=== PATIENT | female | born 1965 | race African-American/Black ===

== ENCOUNTER 2017-03-19 15:32 | Emergency (ER) | payer MEDICAID ==
[2017-03-19] MEDS ORDERED: Sodium Chloride 0.9% 10 ML Syringe FLUSH PRN ×2 (15:45→16:01)
[2017-03-19] MEDS ORDERED: Sodium Chloride 0.9% 1,000 ML IV SCH (15:45)
[2017-03-19] MEDS ORDERED: Ondansetron 4 MG/2 ML SDV IVPUSH ONE (15:49)
[2017-03-19] MEDS ORDERED: HYDROmorphone 1 MG/ML Syringe IVPUSH ONE (15:49)
[2017-03-19] MEDS ORDERED: diphenhydrAMINE 50 MG/ML SDV IVPUSH ONE (15:56)
[2017-03-19] MEDS ORDERED: methylPREDNISolone Sodium Succinate 125 MG/2 ML SDV IVPUSH ONE (15:56)
[2017-03-19] MEDS ORDERED: Iopamidol 755 Mg/ML 100 ML Bottle IVPUSH ONE (16:01)
--- NOTE | 2017-03-19 16:12 | EDM.PDOC ---
ED HPI GENERAL MEDICAL PROBLEM - General Chief Complaint: Chest Pain Stated Complaint: [facility] Time Seen by Provider: 03/19/17 15:32 Source of Information: Reports: Patient History Limitations: Reports: No Limitations - History of Present Illness INITIAL COMMENTS - FREE TEXT/NARRATIVE: 51-year-old female presents via EMS crew for evaluation treatment chest pain. Reportedly the chest pain started about 40 minutes prior to arrival in the ER. Patient reports it is in the center of her chest and radiates to her back. She has difficulty describing the type of pain that rates it as a 10 out of 10. She was given 1 spray of nitroglycerin and 4 baby aspirin prior to arrival in the ER by EMS crew. She reports no relief of symptoms with the nitroglycerin or aspirin. No pain medication was given; she has an allergy to morphine. Patient reports associated symptoms of nausea, diaphoreis and shortness of breath. She denies any fevers, cough, abdominal pain, vomiting or leg pain. Patient states that she was recently diagnosed with diabetes. She has been started on metformin. Patient states that she smokes 2 cigarettes a day. She smoked for several years. No cardiac history. Reports she has had a stress recently. No abnormalities identified on the stress test. Location: Reports: Chest, Back Treatments TELEPHONE CLERK: Reports: Aspirin, IV/IO, Nitroglycerin, Oxygen Chest Pain Score (Numeric/FACES): 8 - Related Data Allergies Allergy/AdvReac Type Severity Reaction Status Date / Time iodine Allergy Hives Verified 03/19/17 15:34 lisinopril AdvReac Cough Verified 03/19/17 15:34 losartan AdvReac Cough Verified 03/19/17 15:34 morphine AdvReac Agitation Verified 03/19/17 15:34 Home Meds: Home Meds Cyclobenzaprine [Flexeril] 10 mg PO BEDTIME 09/12/15 [History] Pantoprazole 20 mg PO BID 09/12/15 [History] Hydrochlorothiazide 25 mg PO BID 02/06/16 [History] amLODIPine [Norvasc] 10 mg PO BEDTIME 06/07/16 [History] Ascorbic Acid [Vitamin C] 500 mg PO DAILY 02/21/17 [History] Hydrocodone/Acetaminophen [Hydrocodon-Acetaminophn 10-325] 1 tab PO Q4HR PRN [History] Pregabalin [Lyrica] 25 mg PO BID 02/21/17 [History] buPROPion [Wellbutrin] 150 mg PO BID 02/21/17 [History] Clindamycin HCl 300 mg PO TID 03/19/17 [History] metFORMIN [Glucophage] 1,000 mg PO BIDMEALS 03/19/17 [History] Past Medical History Cardiovascular History: Reports: Hypertension Respiratory History: Reports: Sleep Apnea Gastrointestinal History: Reports: GERD DIRECTOR OF OCCUPATIONAL THERAPY History: Reports: Other (See Below) Other OB/BYN History: irregular/heavy periods Musculoskeletal History: Reports: Back Pain, Chronic Other Dermatologic History: freq boils/cysts - Past Surgical History Other Musculoskeletal Surgeries/Procedures:: cysts removed from bi-lat wrist Social & Family History - Family History Cardiac: Reports: Hypertension, [place] Endocrine/Metabolic: Reports: Diabetes, type II Oncologic: Reports: Breast, Cervix - Tobacco Use Smoking Status *Q: Current Every Day Smoker Years of Tobacco use: 30 Packs/Tins Daily: 0.1 Used Tobacco, but Quit: No Second Hand Smoke Exposure: Yes - Caffeine Use Caffeine Use: Reports: None - Alcohol Use Days Per Week of Alcohol Use: 3 Number of Drinks Per Day: 6 Total Drinks Per Week: 18 - Recreational Drug Use Recreational Drug Use: No Drug Use in Last 12 Months: No Recreational Drug Type: Reports: Cocaine ED ROS GENERAL - Review of Systems Review Of Systems: See Below Constitutional: Reports: Diaphoresis. Denies: Fever Respiratory: Reports: Shortness of Breath. Denies: Cough Cardiovascular: Reports: Chest Pain GI/Abdominal: Reports: Nausea. Denies: Abdominal Pain, Vomiting ED EXAM, GENERAL - Physical Exam Exam: See Below Exam Limited By: No Limitations General Appearance: Alert, WD/WN, Moderate Distress, Obese Ears: Normal External Exam Throat/Mouth: Normal Inspection, Normal Lips, Normal Voice, No Airway Compromise Respiratory/Chest: No Respiratory Distress, Lungs Clear, Normal Breath Sounds Cardiovascular: Normal Peripheral Pulses, Regular Rate, Rhythm, No Murmur GI/Abdominal: Soft, Non-Tender Neurological: Alert, Oriented, Normal Cognition Psychiatric: Normal Affect, Normal Mood Skin Exam: Warm, Dry, Normal Color EKG INTERPRETATION EKG Date: 03/19/17 Time: 15:40 Rhythm: NSR Rate (Beats/Min): 85 [place]: Normal P-Wave: Present QRS: Normal ST-T: Normal QT: Normal Comparison: No Change EKG Interpretation Comments: NSR at 85 bpm. V1-V@ slight ST elevation - unchanged from previous ekg 02-06-16. Reviewed by myself and Dr. Funes. Course - Vital Signs Last Recorded V/S: Last Vital Signs Temp 36.1 C 03/19/17 15:34 Pulse 94 03/19/17 20:10 Resp 20 03/19/17 20:10 BP 125/76 03/19/17 20:10 Pulse Ox 94 L 03/19/17 20:10 - Orders/Labs/Meds Labs: Laboratory Tests 03/19/17 03/19/17 03/19/17 Range/Units 15:48 15:48 15:48 WBC 10.74 H (3.98-10.04) K/mm3 RBC 5.56 H (3.98-5.22) M/mm3 Hgb 15.5 (11.2-15.7) gm/L Hct 46.0 H (34.1-44.9) % MCV 82.7 (79.4-94.8) fl MCH 27.9 (25.6-32.2) pg MCHC 33.7 (32.2-35.5) g/dl RDW Std Deviation 47.0 H (36.4-46.3) fL Plt Count 272 (182-369) K/mm3 MPV 10.7 (9.4-12.3) fl Neutrophils % (Manual) 68 H (40-60) % Band Neutrophils % 0 (0-10) % Lymphocytes % (Manual) 24 (20-40) % Atypical Lymphs % 0 % Monocytes % (Manual) 6 (2-10) % Eosinophils % (Manual) 1 (0.7-5.8) % Basophils % (Manual) 1 (0.1-1.2) Platelet Estimate Adequate Plt Morphology Comment Normal RBC Morph Comment Normal PT 10.9 (8.0-13.0) SECONDS INR 1.00 APTT 30 (22-36) SECONDS D-Dimer, Quantitative 0.53 (0.19-0.59) mg/L Sodium 137 (136-145) mEq/L Potassium 2.9 L (3.5-5.1) mEq/L Chloride 99 (98-107) mEq/L Carbon Dioxide 23 (21-32) mEq/L Anion Gap 17.9 H (5-15) BUN 13 (7-18) mg/dL Creatinine 0.9 (0.55-1.02) mg/dL Est Cr Clr Drug Dosing 63.86 mL/min Estimated GFR (MDRD) > 60 (>60) mL/min BUN/Creatinine Ratio 14.4 (14-18) Glucose 149 H (74-106) mg/dL Calcium 9.8 (8.5-10.1) mg/dL Total Bilirubin 0.6 (0.2-1.0) mg/dL AST 21 (15-37) U/L ALT 38 (14-59) U/L Alkaline Phosphatase 88 (46-116) U/L Troponin I < 0.017 (0.00-0.056) ng/mL Total Protein 8.6 H (6.4-8.2) g/dl Albumin 4.5 (3.4-5.0) g/dl Globulin 4.1 gm/dL Albumin/Globulin Ratio 1.1 (1-2) Lipase 190 (73-393) U/L // Range/Units 18:50 WBC (3.98-10.04) K/mm3 RBC (3.98-5.22) M/mm3 Hgb (11.2-15.7) gm/L Hct (34.1-44.9) % MCV (79.4-94.8) fl MCH (25.6-32.2) pg MCHC (32.2-35.5) g/dl RDW Std Deviation (36.4-46.3) fL Plt Count (182-369) K/mm3 MPV (9.4-12.3) fl Neutrophils % (Manual) (40-60) % Band Neutrophils % (0-10) % Lymphocytes % (Manual) (20-40) % Atypical Lymphs % % Monocytes % (Manual) (2-10) % Eosinophils % (Manual) (0.7-5.8) % Basophils % (Manual) (0.1-1.2) Platelet Estimate Plt Morphology Comment RBC Morph Comment PT (8.0-13.0) SECONDS INR APTT (22-36) SECONDS D-Dimer, Quantitative (0.19-0.59) mg/L Sodium (136-145) mEq/L Potassium (3.5-5.1) mEq/L Chloride (98-107) mEq/L Carbon Dioxide (21-32) mEq/L Anion Gap (5-15) BUN (7-18) mg/dL Creatinine (0.55-1.02) mg/dL Est Cr Clr Drug Dosing mL/min Estimated GFR (MDRD) (>60) mL/min BUN/Creatinine Ratio (14-18) Glucose (74-106) mg/dL Calcium (8.5-10.1) mg/dL Total Bilirubin (0.2-1.0) mg/dL AST (15-37) U/L ALT (14-59) U/L Alkaline Phosphatase (46-116) U/L Troponin I < 0.017 (0.00-0.056) ng/mL Total Protein (6.4-8.2) g/dl Albumin (3.4-5.0) g/dl Globulin gm/dL Albumin/Globulin Ratio (1-2) Lipase (73-393) U/L Meds: Medications Discontinued Medications Generic Name Dose Route Start Last Admin Trade Name Freq PRN Reason Stop Dose Admin Diphenhydramine HCl 50 mg 03/19/17 15:56 03/19/17 16:05 Benadryl IVPUSH 03/19/17 15:57 50 mg ONETIME ONE Administration Hydromorphone HCl 1 mg 03/19/17 15:49 03/19/17 16:10 Dilaudid IVPUSH 03/19/17 15:50 1 mg ONETIME ONE Administration Sodium Chloride 1,000 mls @ 100 mls/hr 03/19/17 15:45 03/19/17 16:01 Normal Saline IV 100 mls/hr ASDIRECTED BALDO Administration Sodium Chloride 100 mls @ 80 mls/hr 03/19/17 16:15 03/19/17 16:35 Normal Saline IV 80 mls/hr ASDIRECTED BALDO Administration Iopamidol 100 ml 03/19/17 16:01 03/19/17 16:35 Isovue-370 (76%) IVPUSH 03/19/17 16:02 100 ml ONETIME ONE Administration Methylprednisolone Sodium Succinate 125 mg 03/19/17 15:56 03/19/17 16:02 Solu-Medrol IVPUSH 03/19/17 15:57 125 mg ONETIME ONE Administration Ondansetron HCl 4 mg 03/19/17 15:49 03/19/17 16:08 Zofran IVPUSH 03/19/17 15:50 4 mg ONETIME ONE Administration Sodium Chloride 10 ml 03/19/17 15:45 03/19/17 16:09 Saline Flush FLUSH 10 ml ASDIRECTED PRN Administration Keep Vein Open Sodium Chloride 10 ml 03/19/17 16:01 03/19/17 16:35 Saline Flush FLUSH 10 ml ONETIME PRN Administration IV FLUSH - Radiology Interpretation Free Text/Narrative:: CT of the chest, abdomen and pelvis impression per Dr. Greene: 1. No acute abnormality is identified on CT study of the chest. 1. Several small nonobstructing stones are noted within the right kidney. 2. Mild atherosclerotic plaque within the aorta and iliac vessels. No aneurysm or aortic dissection is seen. 3. Other incidental findings as noted. Nothing acute is appreciated. - Re-Assessments/Exams Free Text/Narrative Re-Assessment/Exam: 03/19/17 16:12 Patient has allergies to morphine. Review the patient's records shows she has received Dilaudid in the past without any problem. Patient has allergy to IV contrast. Allergy is hives and itching. Decided to pretreat with Solu-Medrol and Benadryl IV. Contrast needed to rule out aortic dissection. 03/19/17 17:00 Labs returned. wbc is 10.74, hgb is 15.5 and plts are 272 sodium is 137 ,potassium is 2.9 and chloride is 99, anion gap is 17.9. gluclose is 149 d dimer is within normal limits at 0.53 pt is 10.9, INR is 1.0 PTT is 30 trop is <0.017 lipase is 190 Plan will be to continue to monitor patient here in the ER. Repeat trop at 18: 50. Symptoms started around 14:50 03/19/17 20:00 Pain has significantly improved. Repeat troponin returned normal at less than 0.017. At this point feel he can safely discharge the patient home. I feel we have adequately ruled out a [place], PE , aortic dissection, ruptured aneurysm and multiple other etiologies for chest pain. Possibilities include reflux, costochondritis, prodromal shingles. Discharge instructions as documented. Departure - Departure Time of Disposition: 20:00 Disposition: Home, Self-Care 01 Condition: Good Clinical Impression: Atypical chest pain Instructions: Nonspecific Chest Pain Referrals: Babs Stallworth PA-C [Primary Care Provider] - Forms: ED Department Discharge Additional Instructions: Continue with your current plan of care. Follow up with your primary care provider Friday as planned. [id number] Tylenol and Motrin as needed for pain relief. rest. Please return to the ER if your symptoms change or worsen.
[2017-03-19] MEDS ORDERED: Sodium Chloride 0.9% 100 ML IV SCH (16:15)
--- NOTE | 2017-03-19 17:13 | CT ---
CT chest Technique: Multiple axial sections through the chest were obtained. Intravenous contrast was utilized. Comparison: No prior chest CT. Findings: Aorta shows no aneurysm. No aortic dissection is identified. Visualized portions of the pulmonary arteries show no filling defects to indicate pulmonary embolism. Mediastinum shows several small scattered lymph nodes which are felt to be normal. No axillary adenopathy is seen. No pericardial thickening is seen. Lung window settings were reviewed which show the lungs to appear clear. No pleural effusions or pneumothorax is seen. Bone window settings were reviewed which appears within normal limits for the patient's age. Impression: 1. No acute abnormality is identified on CT study of the chest. Diagnostic code #1 CT abdomen and pelvis Technique: Multiple axial sections were obtained from above the dome of the diaphragm inferiorly through the pubic symphysis. Intravenous contrast was utilized. No oral contrast has been given. Findings: Mild atherosclerotic plaque is seen within the aorta and iliac vessels. No aneurysm or dissection is seen. Opacified branch vessels of the aorta appear within normal limits. Liver shows no focal abnormality. Spleen appears within normal limits in size. Adrenal glands show no nodule. Pancreas is within normal limits. Kidneys show symmetric contrast enhancement without hydronephrosis or mass. Several small nonobstructing calculi are seen within the right kidney. No retroperitoneal adenopathy is seen. Appendix is seen which is normal. No pelvic mass or adenopathy is seen. Iliac arteries as well as common femoral arteries are opacified and unremarkable. IUD is present within the endometrial cavity of the uterus. Bone window settings were reviewed which appears within normal limits for the patient's age. Impression: 1. Several small nonobstructing stones are noted within the right kidney. 2. Mild atherosclerotic plaque within the aorta and iliac vessels. No aneurysm or aortic dissection is seen. 3. Other incidental findings as noted above. Nothing acute is appreciated. Diagnostic code #2
[2017-03-19 20:13] VITALS: BP 125/76
== END 2017-03-19 20:06 | disposition home or self-care (01) ==
LOC: JD.ED 15:32
DX: R07.89 Other chest pain (principal); I10 Essential (primary) hypertension; G47.30 Sleep apnea, unspecified; K21.9 Gastro-esophageal reflux disease without esophagitis; F17.210 Nicotine dependence, cigarettes, uncomplicated; E11.9 Type 2 diabetes mellitus without complications; Z98.890 Other specified postprocedural states; Z88.8 Allergy status to other drugs, medicaments and biological substances; Z88.5 Allergy status to narcotic agent; Z79.84 Long term (current) use of oral hypoglycemic drugs
CPT/HCPCS: 36415; 71260; 74177; 80053; 83690; 84484; 85025; 85379; 85610; 85730; 93005; 96361; 96374; 96375; 99285; J1170; J1200; J2405; J2930; J7030; J7040; J7050; Q9967; 99284

== ENCOUNTER 2018-08-27 07:40 | Day surgery (SDC) | payer MEDICARE, MEDICAID ==
[~2018-08-27 07:40] MED LIST: Lactated Ringers 1,000 ML IV SCH; Lidocaine 1%/Sod Bicarbonate in NS 8.4% 1 ML Syringe IDERM PRN; Sodium Chloride 0.9% 10 ML Syringe FLUSH PRN
[2018-08-27] MEDS ORDERED: Bupivacaine 0.25% 10 ML SDV ONE ×2 (08:27→11:47)
--- NOTE | 2018-08-27 09:04 | PCM.PREANE ---
Preanesthetic Assessment - Procedure Proposed Procedure: l thumb a1 carlito release - Anesthesia/Transfusion/Family Hx Anesthesia History: Prior Anesthesia Without Reaction Family History of Anesthesia Reaction: No Transfusion History: No Prior Transfusion(s) - Review of Systems General: No Symptoms Pulmonary: No Symptoms Cardiovascular: No Symptoms Gastrointestinal: No Symptoms Neurological: No Symptoms Other: Reports: Diabetes - Physical Assessment NPO Status Date: 08/26/18 NPO Status Time: 23:00 O2 Sat by Pulse Oximetry: 96 Respiratory Rate: 16 Vital Signs: Last Vital Signs Temp 97.1 F 08/27/18 08:24 Pulse 91 08/27/18 08:24 Resp 16 08/27/18 08:24 BP 148/97 H 08/27/18 08:24 Pulse Ox 96 08/27/18 08:24 Height: 5 ft 4 in Weight: 87.09 kg ASA Class: 2 Mental Status: Alert & Oriented x3 Airway Class: Mallampati = 1 Dentition: Reports: Dentures (upper own bottom teeeth) Thyro-Mental Finger Breadths: 3 Mouth Opening Finger Breadths: 3 ROM/Head Extension: Full Lungs: Clear to Auscultation, Normal Respiratory Effort Cardiovascular: Regular Rate, Regular Rhythm - Lab Values: Laboratory Last Values POC Glucose 130 mg/dL (70-105) H 08/27/18 08:11 Urine HCG, Qual Negative (NEGATIVE) 08/27/18 08:34 - Allergies Allergies/Adverse Reactions: Allergies Allergy/AdvReac Type Severity Reaction Status Date / Time iodine Allergy Hives Verified 08/27/18 08:29 povidone-iodine Allergy Hives Verified 08/27/18 08:29 [From Betadine] soap [From Betadine] Allergy Hives Verified 08/27/18 08:29 lisinopril AdvReac Cough Verified 08/27/18 08:29 losartan AdvReac Cough Verified 08/27/18 08:29 morphine AdvReac Agitation Verified 08/27/18 08:29 - Blood Blood Available: No - Acknowledgements Anesthesia Type Planned: MAC Pt an Appropriate Candidate for the Planned Anesthesia: Yes Alternatives and Risks of Anesthesia Discussed w Pt/Guardian: Yes Pt/Guardian Understands and Agrees with Anesthesia Plan: Yes PreAnesthesia Questionnaire HEENT History: Reports: Impaired Vision, Other (See Below) Other HEENT History: wears glasses, has upper plate Cardiovascular History: Reports: High Cholesterol, Hypertension Respiratory History: Reports: Sleep Apnea (uses c pap) Gastrointestinal History: Reports: GERD TASSEL CLIPPER History: Reports: , Other (See Below) Other OB/BYN History: irregular/heavy periods Musculoskeletal History: Reports: Back Pain, Chronic Other Musculoskeletal History: left wrist pain, extensor carpal ulnaris sublaxation, ganglion cyst excision, heel spur, foot surgery, left total wrist Neurological History: Reports: None Psychiatric History: Reports: None Endocrine/Metabolic History: Reports: Diabetes, Type II Hematologic History: Reports: None Immunologic History: Reports: None Oncologic (Cancer) History: Reports: None Other Dermatologic History: freq boils/cysts - Past Surgical History Head Surgeries/Procedures: Reports: None Cardiovascular Surgical History: Reports: None Respiratory Surgical History: Reports: None GI Surgical History: Reports: Cholecystectomy, Colonoscopy, EGD Female Surgical History: Reports: Section Male Surgical History: Reports: None Neurological Surgical History: Reports: None Musculoskeletal Surgical History: Reports: Other (See Below) (left arm and left foot) Other Musculoskeletal Surgeries/Procedures:: cysts removed from bi-lat wrist Oncologic Surgical History: Reports: None Dermatological Surgical History: Reports: None - SUBSTANCE USE Smoking Status *Q: Current Every Day Smoker Tobacco Use Within Last Twelve Months: Cigarettes Second Hand Smoke Exposure: Yes Days Per Week of Alcohol Use: 0 Recreational Drug Use History: No - HOME MEDS Home Medications: Home Meds Cyclobenzaprine [Flexeril] 10 mg PO BEDTIME 09/12/15 [History] Pantoprazole 20 mg PO BID 09/12/15 [History] hydroCHLOROthiazide [Hydrochlorothiazide] 25 mg PO BID 02/06/16 [History] amLODIPine [Norvasc] 10 mg PO BEDTIME 06/07/16 [History] Hydrocodone/Acetaminophen [Hydrocodon-Acetaminophn 10-325] 1 tab PO Q4HR PRN [History] Albuterol [Ventolin HFA] 1 - 2 puff INH Q4H PRN 08/26/18 [History] Pregabalin [Lyrica] 150 mg PO DAILY 08/26/18 [History] atorvaSTATin [Lipitor] 40 mg PO DAILY 08/26/18 [History] metFORMIN [Glucophage XR] 1,500 mg PO DAILY 08/26/18 [History] - CURRENT (IN HOUSE) MEDS Current Meds: Current Medications Lactated Ringer's (Ringers, Lactated) 1,000 mls @ 125 mls/hr IV ASDIRECTED BALDO Stop: 08/27/18 23:00 Lidocaine/Sodium Bicarbonate (Buffered Lidocaine 1% In Ns 8.4%) 0.25 ml IDERM ONETIME PRN PRN Reason: Prior to IV Start Stop: 08/27/18 18:00 Sodium Chloride (Saline Flush) 10 ml FLUSH ASDIRECTED PRN PRN Reason: Keep Vein Open Stop: 08/27/18 18:00 Discontinued Medications Bupivacaine HCl (Sensorcaine-Mpf 0.25%) Confirm Administered Dose 20 ml .ROUTE .STK-MED ONE Stop: 08/27/18 08:28
[2018-08-27] MEDS ORDERED: Lidocaine 1% 4 ML ONE (09:07)
[2018-08-27] MEDS ORDERED: fentaNYL 100 MCG/2 ML SDV ONE (09:07)
[2018-08-27] MEDS ORDERED: Midazolam 1 MG/ML 2 ML SDV ONE (09:07)
[2018-08-27] MEDS ORDERED: ceFAZolin 1 GM Vial ONE (09:07)
[2018-08-27] MEDS ORDERED: Propofol 200 MG/20 ML SDV ONE (09:07)
[2018-08-27] MEDS ORDERED: Ondansetron 4 MG/2 ML SDV IVPUSH PRN (09:40)
[2018-08-27] MEDS ORDERED: fentaNYL 100 MCG/2 ML SDV IVPUSH PRN (09:40)
[2018-08-27] MEDS ORDERED: Ketorolac 30 MG/ML SDV ONE (10:03)
--- NOTE | 2018-08-27 10:09 | PCM48HPAN ---
Post Anesthesia Note - EVALUATION WITHIN 48HRS OF ANESTHETIC Vital Signs in Normal Range: Yes Patient Participated in Evaluation: Yes Respiratory Function Stable: Yes Airway Patent: Yes Cardiovascular Function Stable: Yes Hydration Status Stable: Yes Pain Control Satisfactory: Yes Nausea and Vomiting Control Satisfactory: Yes Mental Status Recovered: Yes Pulse Rate: 85 SaO2: 94 Resp Rate: 16 Temperature: 97.1 F Blood Pressure: 150/94
[2018-08-27 10:51] VITALS: BP 145/92
--- NOTE | 2018-09-08 07:54 | OR ---
DATE OF OPERATION: 08/27/2018 SURGEON: Mike Lakhani MD PREOPERATIVE DIAGNOSIS: Left thumb stenosing tensosynovitis, M65.312. POSTOPERATIVE DIAGNOSIS: Left thumb stenosing tensosynovitis, M65.312. OPERATION PERFORMED: Left thumb A1 carlito release, [id number]. SCREENER PERFUMER: tmd teacher assistant: Kaci Baldwin RN ANESTHESIA: Local. Monitored anesthesia care. COMPLICATIONS: None. ESTIMATED BLOOD LOSS: Minimal. FLUIDS: Per Anesthesia report. INDICATION: The patient is a pleasant 52-year-old female with symptomatic stenosing tenosynovitis of the left thumb. After discussion of the risks, benefits, and alternatives of both conservative as well as surgical treatments, the patient verbalized understanding and wished to proceed with surgery. DESCRIPTION OF PROCEDURE: The patient was brought to the operating room, underwent a monitored anesthesia care. Her left upper extremity was prepped and draped in standard orthopedic fashion. A surgical pause was performed, identifying the appropriate patient and appropriate extremity to be operated upon. Preoperative antibiotics were given. We injected the left thumb over the flexor crease of the MP joint with several cubic centimeters of Marcaine. Once achieving appropriate anesthesia, a longitudinal incision was made over the MP flexion crease, sharp dissection was carried down through the skin and subcutaneous tissue. Hemostasis was obtained. We identified both radial and ulnar neurovascular bundles. These were mobilized and protected throughout the case. We then incised the A1 carlito at the level of the oblique carlito distally. We then incised the flexor tendon sheath proximally. She had modest synovitis present of the FPL tendon. This was debrided. No other abnormalities were noted. We irrigated the wound thoroughly, closed the skin with 5-0 nylon. She was brought to recovery in satisfactory condition. MMODAL /[id number]
== END 2018-08-27 10:45 | disposition home or self-care (01) ==
LOC: JD.SDS 07:40
PROVIDERS: ATTEND Orthopaedic Surgery
DX: M65.842 Other synovitis and tenosynovitis, left hand (principal); M65.312 Trigger thumb, left thumb; I10 Essential (primary) hypertension; E11.9 Type 2 diabetes mellitus without complications; E78.00 Pure hypercholesterolemia, unspecified; F17.210 Nicotine dependence, cigarettes, uncomplicated; E66.9 Obesity, unspecified; Z79.84 Long term (current) use of oral hypoglycemic drugs; Z79.899 Other long term (current) drug therapy; Z88.8 Allergy status to other drugs, medicaments and biological substances; Z88.5 Allergy status to narcotic agent
CPT/HCPCS: 01810; 81025; 82962; 87641; J0690; J1885; J2001; J2250; J2704; J3010; J3490; J7120

== ENCOUNTER 2019-01-30 22:37 | Emergency (ER) | payer MEDICARE, MEDICAID ==
[2019-01-30 22:46] VITALS: BP 156/91
--- NOTE | 2019-01-31 00:37 | EDM.PDOC ---
ED HPI GENERAL MEDICAL PROBLEM - General Chief Complaint: Upper Extremity Injury/Pain Stated Complaint: PAINFUL MIDDLE FINGER ON RIGHT HAND Time Seen by Provider: 01/31/19 00:19 Source of Information: Reports: Patient, RN Notes Reviewed, Significant Other ( Friend) History Limitations: Reports: No Limitations - History of Present Illness INITIAL COMMENTS - FREE TEXT/NARRATIVE: The patient states that she underwent right carpal tunnel release and trigger finger release of her right 3rd and 4th A1 carlito ligaments 9 days ago, on , 01/21/2019, in [place]. She states that she has been experiencing right 3rd finger swelling and pain, particularly with attempts at extension, ever since surgery. This has limited her ability to exercise it as directed. Her 4th finger has been okay. The patient denies having fever or purulent drainage from her surgical wounds. No traumatic injury to her right hand. The patient states that she will be following up to have her sutures removed this coming 02/02/2019. It is not entirely clear why the patient decided to come to the ED this morning. She did not contact the office of her hand surgeon prior to coming to the ED. The patient's PCP is CHELSI Ansari. Her hand surgeon is Dr. Mike Lakhani. Right Hand Pain Score (Numeric/FACES): 10 - Related Data Allergies Allergy/AdvReac Type Severity Reaction Status Date / Time iodine Allergy Hives Verified 01/30/19 22:46 povidone-iodine Allergy Hives Verified 01/30/19 22:46 [From Betadine] soap [From Betadine] Allergy Hives Verified 01/30/19 22:46 tramadol Allergy Rash Verified 01/30/19 22:47 lisinopril AdvReac Cough Verified 01/30/19 22:46 losartan AdvReac Cough Verified 01/30/19 22:46 morphine AdvReac Agitation Verified 01/30/19 22:46 Home Meds: Home Meds Cyclobenzaprine [Flexeril] 10 mg PO BEDTIME 09/12/15 [History] Pantoprazole 20 mg PO BID 09/12/15 [History] hydroCHLOROthiazide [Hydrochlorothiazide] 25 mg PO BID 02/06/16 [History] amLODIPine [Norvasc] 10 mg PO BEDTIME 06/07/16 [History] Hydrocodone/Acetaminophen [Hydrocodon-Acetaminophn 10-325] 1 tab PO Q4HR PRN [History] Albuterol [Ventolin HFA] 1 - 2 puff INH Q4H PRN 08/26/18 [History] Pregabalin [Lyrica] 150 mg PO DAILY 08/26/18 [History] atorvaSTATin [Lipitor] 40 mg PO DAILY 08/26/18 [History] metFORMIN [Glucophage XR] 1,500 mg PO DAILY 08/26/18 [History] Past Medical History HEENT History: Reports: Impaired Vision, Other (See Below) Other HEENT History: wears glasses, has upper plate Cardiovascular History: Reports: High Cholesterol, Hypertension Respiratory History: Reports: Sleep Apnea (nightly CPAP) Gastrointestinal History: Reports: GERD Genitourinary History: Reports: Renal Calculus 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 Left foot/ankle surgery.) Social & Family History - Family History Cardiac: Reports: Hypertension, [place] Endocrine/Metabolic: Reports: Diabetes, type II Oncologic: Reports: Breast, Cervix - Tobacco Use Smoking Status *Q: Current Some Day Smoker Years of Tobacco use: 30 Packs/Tins Daily Comment: Down from 0.3 ppd - Caffeine Use Caffeine Use: Reports: None - Alcohol Use Alcohol Use History: Yes Alcohol Use Frequency: Rarely - Recreational Drug Use Recreational Drug Use: No - Living Situation & Occupation Living situation: Reports: Single, with Significant Other (Boyfriend) Occupation: Unemployed Review of Systems - Review of Systems Review Of Systems: ROS reveals no pertinent complaints other than HPI. ED EXAM, GENERAL - Physical Exam Exam: See Below Exam Limited By: No Limitations General Appearance: Alert, WD/WN, No Apparent Distress Extremities: Other (There is some generalized swelling to the patient's right hand, when compared to the left, particularly on the palmar aspect. There is a dry surgical wound with sutures still present near the base of the palm, consistent with a carpal tunnel release, as well as 2 similar sized surgical wound with sutures still present, it just proximal to the 3rd and 4th MCP joints , respectively. There is appropriate postoperative tenderness to palpation of all of these suture sites, but there is no fluctuance or drainage of fluid with palpation. Both the right 3rd and 4th fingers are mildly to moderately swollen, the 3rd finger somewhat more than the 4th. Neurovascular status of the right hand, including all fingers, is intact.) Course - Vital Signs Last Recorded V/S: Last Vital Signs Temp 36.2 C 01/30/19 22:45 Pulse 93 01/30/19 22:45 Resp 18 01/30/19 22:45 BP 156/91 H 01/30/19 22:45 Pulse Ox 97 01/30/19 22:45 - Orders/Labs/Meds Labs: Laboratory Tests 01/31/19 Range/Units 00:55 C-Reactive Protein 1.1 H* (<1.0) mg/dL Meds: Medications Discontinued Medications Generic Name Dose Route Start Last Admin Trade Name Tylorq PRN Reason Stop Dose Admin Ibuprofen 600 mg 01/31/19 02:02 01/31/19 02:07 Motrin PO 01/31/19 02:03 600 mg ONETIME ONE Administration - Re-Assessments/Exams Free Text/Narrative Re-Assessment/Exam: 01/31/19 00:35 The patient is complaining of significant pain and limited motion due to pain of her right 3rd finger, following A1 carlito ligament release on 01/21/2019. There is mild swelling to the hand and finger, but nothing that I would not expect postoperatively, and there is no suggestion of an infection. I will attempt to contact Dr. Lakhani to see what he recommends. 01/31/19 00:[address] [facility] at 00:40. Case then discussed with Dr. Chava Lyon, on-call for Dr. Lakhani. He suspects that the patient has bad non-suppurative flexor tenosynovitis, that should resolve over time. He recommended that I check a CRP, to make sure that it is not significantly elevated, which might suggest something else. If okay, he recommends ice, elevation, and NSAIDs, and that she keep her appointment this coming Friday. 01/31/19 02:02 The CRP has returned only mildly elevated at 1.1. The patient tells me that she has not been taking any ibuprofen. I will start her on some ibuprofen here, and discharge her home with instructions on how to continue. Departure - Departure Time of Disposition: 02:03 Disposition: Home, Self-Care 01 Condition: Good Clinical Impression: Tenosynovitis of right hand - Discharge Information *PRESCRIPTION DRUG MONITORING PROGRAM REVIEWED*: Not Applicable *COPY OF PRESCRIPTION DRUG MONITORING REPORT IN PATIENT SHANI: Not Applicable Instructions: Tenosynovitis Referrals: Babs Stallworth PA-C [Primary Care Provider] - Mike Lakhani MD [Ordering Only Provider] - Forms: ED Department Discharge Additional Instructions: You were seen in the emergency room for continued postoperative right middle finger pain and swelling. Workup in the ER included a CRP level, which returned not significantly elevated. Your case was discussed with the Hand Surgeon Dr. Chava Lyon. He feels that you 're likely suffering from bad tenosynovitis, which will need time to resolve. He recommended that you elevate your right hand is much as possible, ice it for 10-15 minutes, 3-5 times a day, and to take [id number] ibuprofen, 2-3 tablets (400-600 mg) every 8 hours, with food, as needed for discomfort. Be sure to keep your follow-up appointment this coming 02/02/2019. If any other problems, please do not hesitate to return to the ER.
[2019-01-31] MEDS ORDERED: Ibuprofen 600 MG Tab PO ONE (02:02)
== END 2019-01-31 02:13 | disposition home or self-care (01) ==
LOC: JD.ED 22:37
DX: M65.9 Synovitis and tenosynovitis, unspecified (principal); E78.00 Pure hypercholesterolemia, unspecified; I10 Essential (primary) hypertension; K21.9 Gastro-esophageal reflux disease without esophagitis; F17.210 Nicotine dependence, cigarettes, uncomplicated; E11.42 Type 2 diabetes mellitus with diabetic polyneuropathy; Z88.8 Allergy status to other drugs, medicaments and biological substances; Z79.899 Other long term (current) drug therapy; Z79.84 Long term (current) use of oral hypoglycemic drugs
CPT/HCPCS: 36415; 86140; 99283; A9270

== ENCOUNTER 2020-06-03 13:00 | Emergency (ER) | payer MEDICARE, MEDICAID ==
[2020-06-03 13:30] VITALS: BP 158/86; PULSE 95
--- NOTE | 2020-06-03 14:53 | EDM.PDOC ---
ED HPI GENERAL MEDICAL PROBLEM - General Chief Complaint: Lower Extremity Injury/Pain Stated Complaint: L LEG NUMBNESS AND SWELLING Time Seen by Provider: 06/03/20 14:11 Source of Information: Reports: Patient History Limitations: Reports: No Limitations - History of Present Illness INITIAL COMMENTS - FREE TEXT/NARRATIVE: Patient is a 54-year-old female presenting to the emergency department with complaints of intermittent pain, burning, tingling, and numbness to the lateral aspect of her left upper leg as well as intermittent pain and swelling to her left knee. Symptoms have been occurring for the last week and a half. She denies any known injury to the area. She does have a history of diabetes with neuropathy of her toes and hands. She also has chronic low back pain for which she sees a chiropractor. She denies any history of blood clots. Denies any fever, chills, nausea, or vomiting. Left Upper Leg Pain Score (Numeric/FACES): 10 - Related Data Allergies Allergy/AdvReac Type Severity Reaction Status Date / Time iodine Allergy Hives Verified 06/03/20 13:30 povidone-iodine Allergy Hives Verified 06/03/20 13:30 [From Betadine] soap [From Betadine] Allergy Hives Verified 06/03/20 13:30 lisinopril AdvReac Cough Verified 06/03/20 13:30 losartan AdvReac Cough Verified 06/03/20 13:30 morphine AdvReac Agitation Verified 06/03/20 13:30 Home Meds: Home Meds Cyclobenzaprine [Flexeril] 10 mg PO BEDTIME 09/12/15 [History] Pantoprazole 20 mg PO BID 09/12/15 [History] amLODIPine [Norvasc] 10 mg PO DAILY 06/07/16 [History] Albuterol [Ventolin HFA] 1 - 2 puff INH Q4H PRN 08/26/18 [History] Pregabalin [Lyrica] 150 mg PO DAILY 08/26/18 [History] atorvaSTATin [Lipitor] 40 mg PO DAILY 08/26/18 [History] metFORMIN [Glucophage XR] 1,500 mg PO DAILY 08/26/18 [History] Aspirin 81 mg PO DAILY 06/03/20 [History] Furosemide [Lasix] 20 mg PO TID 06/03/20 [History] SitaGLIPtin [Januvia] 100 mg PO DAILY 06/03/20 [History] Varenicline Tartrate [Chantix] 1 mg PO DAILY 06/03/20 [History] Past Medical History HEENT History: Reports: Impaired Vision, Other (See Below) Other HEENT History: wears glasses, has upper plate Cardiovascular History: Reports: High Cholesterol, Hypertension Respiratory History: Reports: Sleep Apnea Gastrointestinal History: Reports: GERD CLAIM CLERK History: Reports: 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 CLAIM CLERK History: irregular/heavy periods Musculoskeletal History: Reports: Back Pain, Chronic Other Musculoskeletal History: left wrist pain, extensor carpal ulnaris sublaxation, ganglion cyst excision, heel spur, foot surgery, left total wrist Neurological History: Reports: None Psychiatric History: Reports: None Endocrine/Metabolic History: Reports: Diabetes, Type II Hematologic History: Reports: None Immunologic History: Reports: None Oncologic (Cancer) History: Reports: None Other Dermatologic History: freq boils/cysts, ulcer to L toe - Infectious Disease History Infectious Disease History: Reports: Chicken Pox, Measles, Mumps - Past Surgical History GI Surgical History: Reports: Cholecystectomy, Colonoscopy, EGD Female Surgical History: Reports: Section Musculoskeletal Surgical History: Reports: Carpal Tunnel Social & Family History - Family History Family Medical History: Noncontributory Cardiac: Reports: Hypertension, [place] Endocrine/Metabolic: Reports: Diabetes, type II Oncologic: Reports: Breast, Cervix - Tobacco Use Smoking Status *Q: Former Smoker Used Tobacco, but Quit: Yes Month/Year Tobacco Last Used: 11/2019 - Caffeine Use Caffeine Use: Reports: Soda, Tea - Recreational Drug Use Recreational Drug Use: No Review of Systems - Review of Systems Review Of Systems: See Below Constitutional: Reports: No Symptoms. Denies: Chills, Fever, Weakness Eyes: Reports: No Symptoms Ears: Reports: No Symptoms Nose: Reports: No Symptoms Mouth/Throat: Reports: No Symptoms Respiratory: Reports: No Symptoms. Denies: Shortness of Breath, Cough Cardiovascular: Reports: No Symptoms GI/Abdominal: Reports: No Symptoms Genitourinary: Reports: No Symptoms Musculoskeletal: Reports: Other (left knee and upper leg pain/burning) Skin: Reports: No Symptoms. Denies: Rash Neurological: Reports: No Symptoms Psychiatric: Reports: No Symptoms ED EXAM, GENERAL - Physical Exam Exam: See Below General Appearance: Alert, WD/WN, No Apparent Distress Respiratory/Chest: No Respiratory Distress, Lungs Clear, Normal Breath Sounds, No Accessory Muscle Use, Chest Non-Tender Cardiovascular: Normal Peripheral Pulses, Regular Rate, Rhythm, No Edema, No Gallop, No JVD, No Murmur, No Rub Peripheral Pulses: 2+: Dorsalis Pedis (L) GI/Abdominal: Normal Bowel Sounds, Soft, Non-Tender, No Organomegaly, No Distention, No Abnormal Bruit, No Mass Extremities: Normal Inspection, Normal Range of Motion, No Pedal Edema, Normal Capillary Refill, Other (Tenderness to palpation of the left upper leg above the level of the knee. Light touch of the skin also causes pain. There is no redness, warmth, swelling, or rash to the skin.) Neurological: Alert, Oriented, CN II-XII Intact, Normal Cognition, Normal Gait, Normal Reflexes, No Motor/Sensory Deficits Psychiatric: Normal Affect, Normal Mood Skin Exam: Warm, Dry, Intact, Normal Color, No Rash Course - Vital Signs Last Recorded V/S: Last Vital Signs Temp 97.2 F 06/03/20 13:27 Pulse 95 06/03/20 13:27 Resp 19 06/03/20 13:27 BP 158/86 H 06/03/20 13:27 Pulse Ox 99 06/03/20 13:27 - Orders/Labs/Meds Orders: Active Orders 24 hr Category Date Time Status VL Duplex Lwr Ext Veins Ltd Lt [US] Stat Exams 06/03/20 14:18 Taken - Re-Assessments/Exams Free Text/Narrative Re-Assessment/Exam: Patient is a 54-year-old female presenting to the ER with a 1-1/2-week history of burning, tingling, and paresthesia to her left upper thigh above the level of the knee. She is had no known injury. She does not have a history of type 2 diabetes with neuropathy of her toes and hands. She also has chronic low back pain. She has seen her chiropractor since onset of symptoms with no improvement. She denies a history of blood clots. On exam, there is no redness, warmth, swelling, or rash noted to the area. She does have pain with palpation or even a light touch of the skin. My suspicion is that she is having neuropathic pain, however I have ordered a venous Doppler ultrasound of the leg to ensure that there is no underlying DVT. 06/03/20 16:12 Venous Doppler of the left lower extremity was negative for DVTs. Discussed with patient that she is likely experiencing neuropathic pain related to her diabetes. She is currently on 150 mg of Lyrica so there is room for her to go up on this, however I will defer this to her primary care provider as she has an appointment on Friday. In the meantime I will write for a short course of [place] to help her get through until she sees her primary care on Friday. She is in agreement with this plan. Discharge instructions as documented. 06/03/20 16:23 I was in the process of prescribing [place] for pain, however review of the [employer] shows the patient was prescribed 180 tablets of hydrocodone 10 mg with Tylenol 325 mg approximately 9 days ago. Discussed this with patient states that she has been able to pick this up yet, however she will just use ibuprofen as needed until her appointment and follow-up with her primary care provider with regards to her pain medications. Discharge instructions as documented. Departure - Departure Time of Disposition: 16:14 Disposition: Home, Self-Care 01 Condition: Good Clinical Impression: Leg pain, left - Discharge Information *PRESCRIPTION DRUG MONITORING PROGRAM REVIEWED*: No *COPY OF PRESCRIPTION DRUG MONITORING REPORT IN PATIENT SHANI: No Referrals: Babs Stallworth PA-C [Primary Care Provider] - Forms: ED Department Discharge Additional Instructions: You were seen in the emergency department today for pain to your left upper leg and knee for for approximate the last week and a half. He denies any known injury to the leg. Ultrasound was completed of your leg and which was negative for any signs of blood clots. Has a discussed, my suspicion is that this is a neuropathic pain related to her diabetes. Recommend that you keep your appointment with your primary care provider as scheduled on Friday. In the meantime, you may use the [place] previously prescribed or over the counter tylenol or ibuprofen for pain. Return to the ER for any new or worsening symptoms of concern. Sepsis Event Note (ED) - Evaluation Sepsis Screening Result: No Definite Risk - Focused Exam Vital Signs: Vital Signs Temp Pulse Resp BP Pulse Ox 06/03/20 13:27 97.2 F 95 19 158/86 H 99 - My Orders Last 24 Hours: My Active Orders 06/03/20 14:18 VL Duplex Lwr Ext Veins Ltd Lt [US] Stat - Assessment/Plan Last 24 Hours: My Active Orders 06/03/20 14:18 VL Duplex Lwr Ext Veins Ltd Lt [US] Stat
== END 2020-06-03 16:40 | disposition home or self-care (01) ==
LOC: JD.ED 13:00
DX: M79.652 Pain in left thigh (principal); E78.00 Pure hypercholesterolemia, unspecified; I10 Essential (primary) hypertension; K21.9 Gastro-esophageal reflux disease without esophagitis; E11.40 Type 2 diabetes mellitus with diabetic neuropathy, unspecified; Z79.82 Long term (current) use of aspirin; Z79.84 Long term (current) use of oral hypoglycemic drugs; Z79.899 Other long term (current) drug therapy; Z87.891 Personal history of nicotine dependence; Z91.048 Other nonmedicinal substance allergy status; Z88.8 Allergy status to other drugs, medicaments and biological substances; Z88.5 Allergy status to narcotic agent
CPT/HCPCS: 93971-LT; 99282; 99283-25

== ENCOUNTER 2020-08-20 11:52 | Emergency (ER) | payer MEDICARE, MEDICAID ==
[2020-08-20] MEDS ORDERED: Lidocaine 1% 10 ML MDV INJECT ONE (12:15)
[2020-08-20] MEDS ORDERED: HYDROmorphone 0.5 MG/0.5 ML Syringe IM ONE (12:15)
[2020-08-20 12:16] VITALS: BP 176/86; PULSE 105
--- NOTE | 2020-08-20 12:21 | EDM.PDOC ---
ED HPI GENERAL MEDICAL PROBLEM - General Chief Complaint: Skin Complaint Stated Complaint: VAGINAL ABSCESS Time Seen by Provider: 08/20/20 12:00 Source of Information: Reports: Patient, RN Notes Reviewed History Limitations: Reports: No Limitations - History of Present Illness INITIAL COMMENTS - FREE TEXT/NARRATIVE: Patient is a 54-year-old female who presents to the ED for a skin abscess to her right side of her vagina. Patient notes she woke up this morning with pain on the right vulva, and noted a lump about the size of a marble. She notes is very painful to walk, she tried to go into the shower, and use hot compress as she commonly gets use in her armpits and buttocks in the past. She states none of this was working. She does have a history of MRSA, and states she is on doxycycline daily for these past boils, along with [facility] for pain management that seems to be doing not a lot for pain. She denies any fevers or chills, cough or shortness of breath, nausea/vomiting/diarrhea. Her primary care provider is Babs Stallworth. She does have another provider that overlooks the "boils in her armpits" but she cannot member the provider's name. Vaginal Pain Score (Numeric/FACES): 6 - Related Data Allergies Allergy/AdvReac Type Severity Reaction Status Date / Time iodine Allergy Hives Verified 06/03/20 13:30 povidone-iodine Allergy Hives Verified 06/03/20 13:30 [From Betadine] soap [From Betadine] Allergy Hives Verified 06/03/20 13:30 lisinopril AdvReac Cough Verified 06/03/20 13:30 losartan AdvReac Cough Verified 06/03/20 13:30 morphine AdvReac Agitation Verified 06/03/20 13:30 Home Meds: Home Meds Cyclobenzaprine [Flexeril] 10 mg PO BEDTIME 09/12/15 [History] Pantoprazole 20 mg PO BID 09/12/15 [History] amLODIPine [Norvasc] 10 mg PO DAILY 06/07/16 [History] Albuterol [Ventolin HFA] 1 - 2 puff INH Q4H PRN 08/26/18 [History] Pregabalin [Lyrica] 150 mg PO DAILY 08/26/18 [History] atorvaSTATin [Lipitor] 40 mg PO DAILY 08/26/18 [History] metFORMIN [Glucophage XR] 1,500 mg PO DAILY 08/26/18 [History] Aspirin 81 mg PO DAILY 06/03/20 [History] Furosemide [Lasix] 20 mg PO TID 06/03/20 [History] SitaGLIPtin [Januvia] 100 mg PO DAILY 06/03/20 [History] Varenicline Tartrate [Chantix] 1 mg PO DAILY 06/03/20 [History] Sulfamethoxazole/Trimethoprim [Sulfamethoxazole-Tmp Ds Tablet] 1 tab PO BID 7 Days #14 tablet 08/20/20 [Rx] Past Medical History HEENT History: Reports: Impaired Vision, Other (See Below) Other HEENT History: wears glasses, has upper plate Cardiovascular History: Reports: High Cholesterol, Hypertension Respiratory History: Reports: Sleep Apnea Gastrointestinal History: Reports: GERD 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 Musculoskeletal History: Reports: Back Pain, Chronic Other Musculoskeletal History: left wrist pain, extensor carpal ulnaris sublaxation, ganglion cyst excision, heel spur, foot surgery, left total wrist Neurological History: Reports: None Psychiatric History: Reports: None Endocrine/Metabolic History: Reports: Diabetes, Type II Hematologic History: Reports: None Immunologic History: Reports: None Oncologic (Cancer) History: Reports: None Other Dermatologic History: freq boils/cysts, ulcer to L toe - Infectious Disease History Infectious Disease History: Reports: Chicken Pox, Measles, MRSA, Mumps Other Infectious Disease History: had surgery to the armpits at the [facility] by Dr Saleem - Past Surgical History Head Surgeries/Procedures: Reports: None Cardiovascular Surgical History: Reports: None Respiratory Surgical History: Reports: None GI Surgical History: Reports: Cholecystectomy, Colonoscopy, EGD Female Surgical History: Reports: Section Neurological Surgical History: Reports: None Musculoskeletal Surgical History: Reports: Carpal Tunnel Other Musculoskeletal Surgeries/Procedures:: cysts removed from bi-lat wrist, r hand carpal tunnel Oncologic Surgical History: Reports: None Dermatological Surgical History: Reports: None Social & Family History - Family History Family Medical History: No Pertinent Family History Cardiac: Reports: Hypertension, PA Endocrine/Metabolic: Reports: Diabetes, type II Oncologic: Reports: Breast, Cervix - Tobacco Use Tobacco Use Status *Q: Former Tobacco User Used Tobacco, but Quit: Yes Month/Year Tobacco Last Used: 1 - Caffeine Use Caffeine Use: Reports: Soda - Recreational Drug Use Recreational Drug Use: No ED ROS GENERAL - Review of Systems Review Of Systems: Comprehensive ROS is negative, except as noted in HPI. ED EXAM, SKIN/RASH Exam: See Below Exam Limited By: No Limitations General Appearance: Alert, WD/WN, No Apparent Distress Respiratory/Chest: No Respiratory Distress, Lungs Clear, Normal Breath Sounds, No Accessory Muscle Use, Chest Non-Tender Cardiovascular: Normal Peripheral Pulses, Regular Rate, Rhythm, No Edema (Female) Exam: Other (painful lump to the R vulva) Extremities: Normal Inspection, Normal Capillary Refill Neurological: Alert, Oriented, Normal Cognition, No Motor/Sensory Deficits Psychiatric: Normal Affect, Normal Mood Skin: Warm, Dry, Intact, Normal Color, No Rash ED SKIN PROCEDURES - I&D Site: R vulva Skin Prep: Chlorhexidine (Hibiciens), Saline Local Anesthesia: Lidocaine: 1% Plain Local Anesthetic Volume: 4cc Area Incised With: 11 Blade Drainage: Purulent, Small Amount Probed to Break Up Loculations: Yes Packed With: None Sterile Dressing: Adhesive Dressing Complications: No Course - Vital Signs Last Recorded V/S: Last Vital Signs Temp 96.9 F 08/20/20 12:06 Pulse 105 H 08/20/20 12:06 Resp 18 08/20/20 12:06 BP 176/86 H 08/20/20 12:06 Pulse Ox 96 08/20/20 12:06 - Orders/Labs/Meds Orders: Medication Orders Hydromorphone HCl (Dilaudid) 0.5 mg IM ONETIME ONE Stop: 08/20/20 12:16 Lidocaine HCl (Xylocaine 1%) 10 ml INJECT ONETIME ONE Stop: 08/20/20 12:16 Meds: Medications Generic Name Dose Route Start Last Admin Trade Name Freq PRN Reason Stop Dose Admin Hydromorphone HCl 0.5 mg 08/20/20 12:15 Dilaudid IM 08/20/20 12:16 ONETIME ONE Lidocaine HCl 10 ml 08/20/20 12:15 Xylocaine 1% INJECT 08/20/20 12:16 ONETIME ONE Departure - Departure Time of Disposition: 12:21 Disposition: Home, Self-Care 01 Condition: Good Clinical Impression: History of MRSA infection Abscess of skin Qualifiers: Site of cutaneous abscess: other site Qualified Code(s): L02.818 - Cutaneous abscess of other sites - Discharge Information *PRESCRIPTION DRUG MONITORING PROGRAM REVIEWED*: No *COPY OF PRESCRIPTION DRUG MONITORING REPORT IN PATIENT SHANI: No Instructions: Skin Abscess, [id number] Referrals: Babs Stallworth PA-C [Primary Care Provider] - Additional Instructions: You were evaluated in the ER today regarding your skin abscess. You were given an antibiotic, trimethoprim/sulfamethoxazole please take as prescribed until the course is done or told otherwise by different provider. Please note that this antibiotic will take at least 48 hours to start working appropriately. The area in question was lanced at today's visit, to allow for drainage. You may try to use heat/ice packs to the area to help reduce pain/swelling. You may take 500 mg Tylenol or 600 mg ibuprofen every 6 hours as needed for further pain relief. Do not exceed 4000 mg Tylenol or 3200 mg ibuprofen in a 24-hour time span. Please return to the ER at any time if your symptoms change or worsen. Sepsis Event Note (ED) - Evaluation Sepsis Screening Result: No Definite Risk - Focused Exam Vital Signs: Vital Signs Temp Pulse Resp BP Pulse Ox 08/20/20 12:06 96.9 F 105 H 18 176/86 H 96
== END 2020-08-20 13:04 | disposition home or self-care (01) ==
LOC: JD.ED 11:52
DX: N76.4 Abscess of vulva (principal); E11.9 Type 2 diabetes mellitus without complications; E78.00 Pure hypercholesterolemia, unspecified; I10 Essential (primary) hypertension; K21.9 Gastro-esophageal reflux disease without esophagitis; Z87.891 Personal history of nicotine dependence; Z79.82 Long term (current) use of aspirin; Z79.84 Long term (current) use of oral hypoglycemic drugs; Z79.899 Other long term (current) drug therapy; Z91.048 Other nonmedicinal substance allergy status; Z88.8 Allergy status to other drugs, medicaments and biological substances; Z88.5 Allergy status to narcotic agent; Z86.14 Personal history of Methicillin resistant Staphylococcus aureus infection
CPT/HCPCS: 56405; 96372; 99283; J1170; J2001

== ENCOUNTER → 2020-12-28 | Day surgery (SDC) | payer MEDICARE, MEDICAID ==
[~2020-12-28] MED LIST changes: +Bupivacaine 0.25% 10 ML SDV ONE; +Ketorolac 30 MG/ML SDV ONE; +Lidocaine 1% 4 ML ONE; +Midazolam 1 MG/ML 2 ML SDV ONE; +Propofol 200 MG/20 ML SDV ONE; +ceFAZolin 1 GM Vial ONE; +fentaNYL 100 MCG/2 ML SDV ONE
--- NOTE | 2020-12-28 07:21 | PCM.PREANE ---
Preanesthetic Assessment - Procedure Proposed Procedure: left ring finger a1 carlito release - Anesthesia/Transfusion/Family Hx Anesthesia History: Prior Anesthesia Without Reaction Family History of Anesthesia Reaction: No Transfusion History: No Prior Transfusion(s) - Review of Systems General: No Symptoms Pulmonary: No Symptoms Cardiovascular: No Symptoms Gastrointestinal: No Symptoms Neurological: No Symptoms Other: Reports: Diabetes - Physical Assessment NPO Status Date: 12/27/20 NPO Status Time: 19:00 Vital Signs: 155/91 81 94% 16 97.9 Height: 5 ft 4 in Weight: 90 kg ASA Class: 2 Mental Status: Alert & Oriented x3 Airway Class: Mallampati = 1 Dentition: Reports: Partial (top) Thyro-Mental Finger Breadths: 3 Mouth Opening Finger Breadths: 3 ROM/Head Extension: Full Lungs: Clear to Auscultation, Normal Respiratory Effort Cardiovascular: Regular Rate, Regular Rhythm - Allergies Allergies/Adverse Reactions: Allergies Allergy/AdvReac Type Severity Reaction Status Date / Time iodine Allergy Hives Verified 12/27/20 14:23 povidone-iodine Allergy Hives Verified 12/27/20 14:23 [From Betadine] soap [From Betadine] Allergy Hives Verified 12/27/20 14:23 lisinopril AdvReac Cough Verified 12/27/20 14:23 losartan AdvReac Cough Verified 12/27/20 14:23 metformin AdvReac Nausea Verified 12/27/20 14:38 morphine AdvReac Agitation Verified 12/27/20 14:23 - Blood Blood Available: No - Acknowledgements Anesthesia Type Planned: MAC Pt an Appropriate Candidate for the Planned Anesthesia: Yes Alternatives and Risks of Anesthesia Discussed w Pt/Guardian: Yes Pt/Guardian Understands and Agrees with Anesthesia Plan: Yes PreAnesthesia Questionnaire HEENT History: Reports: Impaired Vision, Other (See Below) Other HEENT History: wears glasses, has upper plate Cardiovascular History: Reports: High Cholesterol (denies), Hypertension (denies) Respiratory History: Reports: Sleep Apnea Gastrointestinal History: Reports: Colon Polyp, GERD Genitourinary History: Reports: Renal Calculus 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/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: 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/heavy 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 Musculoskeletal History: Reports: Back Pain, Chronic Other Musculoskeletal History: left wrist pain, extensor carpal ulnaris sublaxation, ganglion cyst excision, heel spur, foot surgery, left total wrist Neurological History: Reports: Other (See Below) Other Neuro History: chronic back pain Psychiatric History: Reports: Addiction Endocrine/Metabolic History: Reports: Diabetes, Type II, Obesity/BMI 30+ Hematologic History: Reports: None Immunologic History: Reports: None Oncologic (Cancer) History: Reports: None Other Dermatologic History: folliculitis, hidradentitis axillaris and suppurativa, axilla abcess - Infectious Disease History Infectious Disease History: Reports: Chicken Pox, Measles, MRSA, Mumps Other Infectious Disease History: had surgery to the armpits at the [facility] by Dr Saleem - Past Surgical History Head Surgeries/Procedures: Reports: None Cardiovascular Surgical History: Reports: None Respiratory Surgical History: Reports: None GI Surgical History: Reports: Cholecystectomy, Colonoscopy, EGD Female Surgical History: Reports: Section Male Surgical History: Reports: None Endocrine Surgical History: Reports: None Neurological Surgical History: Reports: None Musculoskeletal Surgical History: Reports: Carpal Tunnel Other Musculoskeletal Surgeries/Procedures:: cysts removed from bi-lat wrist, r hand carpal tunnel Oncologic Surgical History: Reports: None Dermatological Surgical History: Reports: None - SUBSTANCE USE Tobacco Use Status *Q: Former Tobacco User Tobacco Use Within Last Twelve Months: No Second Hand Smoke Exposure: No Days Per Week of Alcohol Use: 0 Recreational Drug Use History: No - HOME MEDS Home Medications: Home Meds Cyclobenzaprine [Flexeril] 10 mg PO BEDTIME 09/12/15 [History] amLODIPine [Norvasc] 10 mg PO DAILY 06/07/16 [History] Albuterol [Ventolin HFA] 1 - 2 puff INH Q4H PRN 08/26/18 [History] Furosemide [Lasix] 20 mg PO TID 06/03/20 [History] Varenicline Tartrate [Chantix] 1 mg PO BID 06/03/20 [History] Acetaminophen/HYDROcodone [Rogers 325-10 MG] 1 tab PO Q4H PRN 12/27/20 [History] Ascorbic Acid [Vitamin C] 500 mg PO DAILY 12/27/20 [History] Betamethasone Valerate [Valisone 0.1% Crm] 1 dose TOP BID 12/27/20 [History] Diclofenac Sodium [Voltaren] 75 mg PO DAILY 12/27/20 [History] Fluticasone Propionate [Flonase] 1 dose NASBOTH BID 12/27/20 [History] Glycopyrrolate [Robinul] 2 mg PO DAILY 12/27/20 [History] Pantoprazole Sodium [Protonix] 40 mg PO QAM 12/27/20 [History] Pregabalin [Lyrica] 200 mg PO BID 12/27/20 [History] Semaglutide [Ozempic] 1 mg SQ TU 12/27/20 [History] levonorgestreL [Mirena] 1 unit IU ASDIRECTED 12/27/20 [History] - CURRENT (IN HOUSE) MEDS Current Meds: Current Medications Lactated Ringer's (Ringers, Lactated) 1,000 mls @ 125 mls/hr IV ASDIRECTED BALDO Stop: 12/28/20 23:00 Lidocaine/Sodium Bicarbonate (Lidocaine 1%/Sod Bicarbonate In Ns 8.4% 1 Ml Syringe) 0.25 ml IDERM ONETIME PRN PRN Reason: Prior to IV Start Stop: 12/28/20 18:00 Sodium Chloride (Sodium Chloride 0.9% 10 Ml Syringe) 10 ml FLUSH ASDIRECTED PRN PRN Reason: Keep Vein Open Stop: 12/28/20 18:00
--- NOTE | 2020-12-28 08:53 | PCM48HPAN ---
Post Anesthesia Note - EVALUATION WITHIN 48HRS OF ANESTHETIC Vital Signs in Normal Range: Yes Patient Participated in Evaluation: Yes Respiratory Function Stable: Yes Airway Patent: Yes Cardiovascular Function Stable: Yes Hydration Status Stable: Yes Pain Control Satisfactory: Yes Nausea and Vomiting Control Satisfactory: Yes Mental Status Recovered: Yes Vital Signs: Last Vital Signs Temp 97.9 F 12/28/20 07:38 Pulse 81 12/28/20 07:38 Resp 16 12/28/20 07:38 BP 155/91 H 12/28/20 07:38 Pulse Ox 94 L 12/28/20 07:38 0843 137/85 82 14 97.1 93% on 2 liters
[2020-12-28 09:45] VITALS: BP 140/93; PULSE 81
--- NOTE | 2021-01-09 20:51 | OR ---
DATE OF OPERATION: 12/28/2020 SURGEON: Mike Lakhani MD PREOPERATIVE DIAGNOSIS: Left ring finger stenosing tenosynovitis, M65.342. POSTOPERATIVE DIAGNOSIS: Left ring finger stenosing tenosynovitis, M65.342. OPERATION PERFORMED: Left ring finger A1 carlito release, [id number]. SOFTWARE PACKAGER: Jesi Vasquez. ANESTHESIA: Local anesthesia with monitored anesthesia care. COMPLICATIONS: None known. DESCRIPTION OF PROCEDURE: The patient is a pleasant 55-year-old female with symptomatic left ring finger stenosing tenosynovitis. After discussing risks, benefits, alternatives of both conservatives as well as surgical treatment, the patient verbalized understanding and wished to proceed with surgery. The patient was brought to the operating room, and after appropriate anesthesia, left upper extremity was prepped and draped in standard orthopedic fashion. Surgical pause was performed identifying the appropriate patient and appropriate extremity to be operated upon. Preoperative antibiotics were given. A longitudinal incision was made at the distal palmar crease, proximal ring finger, sharp dissection was carried down to the skin, subcutaneous tissue. Hemostasis was obtained. We identified the palmar fascial fibers. These were divided. Once these were divided, we then identified the A1 carlito. After protecting the neurovascular bundle, the A1 carlito was incised. The flexor sheath was released proximally. She had moderate synovitis and synovectomy was performed. The wound was irrigated and skin was closed with 5-0 nylon. She was placed in a soft dressing, brought to the recovery room in satisfactory condition. ESTIMATED BLOOD LOSS: MMODAL /[id number]
== END | disposition home or self-care (01) ==
LOC: JD.SDS 06:54
PROVIDERS: ATTEND Orthopaedic Surgery
DX: M65.842 Other synovitis and tenosynovitis, left hand (principal); G89.29 Other chronic pain; M54.9 Dorsalgia, unspecified; G47.33 Obstructive sleep apnea (adult) (pediatric); I10 Essential (primary) hypertension; E11.9 Type 2 diabetes mellitus without complications; M79.641 Pain in right hand; E78.00 Pure hypercholesterolemia, unspecified; E66.9 Obesity, unspecified; Z20.822 Contact with and (suspected) exposure to COVID-19; Z01.812 Encounter for preprocedural laboratory examination; Z88.8 Allergy status to other drugs, medicaments and biological substances; Z79.899 Other long term (current) drug therapy; Z98.890 Other specified postprocedural states; Z87.891 Personal history of nicotine dependence
CPT/HCPCS: 26055; 87641; J0690; J1885; J2250; J2704; J3010; J3490; J7120; 01810

== ENCOUNTER 2022-06-16 12:14 | Emergency (ER) | payer MEDICARE, MEDICAID ==
[2022-06-16 13:06] VITALS: BP 143/89; PULSE 86
[2022-06-16] MEDS ORDERED: Doxycycline Susp 25 MG/5 ML 60 ML Bottle PO ONE (15:20)
[2022-06-16] MEDS ORDERED: Doxycycline Monohydrate 100 MG Cap ONE (15:51)
[2022-06-16] MEDS ORDERED: Doxycycline Monohydrate 100 MG Cap PO ONE (15:52)
== END 2022-06-16 15:55 | disposition home or self-care (01) ==
LOC: JD.ED 12:14
DX: L66.2 Folliculitis decalvans (principal); I10 Essential (primary) hypertension; E11.9 Type 2 diabetes mellitus without complications; F17.210 Nicotine dependence, cigarettes, uncomplicated; E66.9 Obesity, unspecified; Z68.31 Body mass index [BMI] 31.0-31.9, adult; Z91.041 Radiographic dye allergy status; Z88.8 Allergy status to other drugs, medicaments and biological substances; Z88.6 Allergy status to analgesic agent; Z79.899 Other long term (current) drug therapy; Z90.49 Acquired absence of other specified parts of digestive tract
CPT/HCPCS: 99282; A9270